=== PATIENT | male | born 1950 | race Caucasian/White ===

== ENCOUNTER 2024-04-17 10:34 | Outpatient (CLI) | payer MEDICARE, SELFPAY ==
--- NOTE | ~2024-04-17 | PE_ITS ---
EXAMINATION: PET_PETPSMAST_PT DATE: 04/17/2024 13:19 INDICATION: Prostate cancer. TECHNIQUE: 4.819 mCi of Ga-68 gozetotide was administered intravenously. Low dose computed tomography (CT) images were acquired from the base of the brain to the proximal thighs for attenuation correcti on and anatomic localization. Automated exposure control was employed. Dose-length product (DLP) was 1239 mGy-cm. Positron emission tomography (PET) images were acquired in the same distribution. COMPARISON: None FINDINGS: Head/neck: There are no pathologically enlarged lymph nodes. Chest: The lungs demonstrate mild atelectasis. No pleural effusion. The heart size is normal. There a re coronary artery calcifications. No pericardial effusion. There is mild bilateral gynecomastia. Abdomen/pelvis/proximal thighs: There are cysts in the liver measuring up to 3.5 cm. The gallbladder, spleen, pancreas, adrenal glands, and right kidney are normal. There is an 8 mm cyst in left kidney. There is calcified atherosclerosis of the aorta and many of the other arteries. There is prominent f at in the right inguinal canal that may be a hernia. There is diverticulosis of the colon without ivan dence of diverticulitis. There are no dilated loops of bowel. The appendix is normal. There is an umb ilical hernia containing fat. The prostate is mildly enlarged. There is increased activity in the pro state with maximum SUV of 19.1. There is diffuse bladder wall thickening, likely secondary to chronic outlet obstruction. There are no pathologically enlarged lymph nodes. There is no free intraperitone al fluid. There is no osseous malignancy. IMPRESSION: 1. Mildly enlarged prostate with increased activity, consistent with primary malignancy. No evidence of metastatic disease. Reviewed, dictated and finalized at location A. IMPRESSION: 1. Mildly enlarged prostate with increased activity, consistent with primary ma lignancy. No evidence of metastatic disease.
== END 2024-04-17 10:35 | disposition home or self-care (01) ==
PROVIDERS: PCP Family Medicine; Visit Provider Urology
DX: C61 Malignant neoplasm of prostate (principal)
CPT/HCPCS: 78815; A9596